=== PATIENT | female | born 1960 | race Caucasian/White ===

== ENCOUNTER 2017-02-07 10:52 | Inpatient (IN) | payer OTHER ==
[2017-02-07 11:37] VITALS: BMI 18.3
--- NOTE | 2017-02-07 16:39 | HP ---
COWS - Scale Resting Pulse: 2= [place] 101-120 Sweatin= Chills/Flushing Restless Observation: 3= Extraneous Movement Pupil Size: 2= Moderately Dilated Bone or Joint Aches: 4=Acute Joint/Muscle Pain Runny Nose/ Eye Tearin= Nasal Congestion GI Upset > 30mins: 1= Stomach Cramp Tremor Observation: 4= Gross Tremor/Twitching Yawning Observation: 1= 1-2x During Session Anxiety or Irritability: 2=Irritable/Anxious Goose Flesh Skin: 0=Smooth Skin COWS Score: 21 CIWA Score - CIWA Score Nausea/Vomitin Muscle Tremors: 5 Anxiety: 5 Agitation: 3 Paroxysmal Sweats: 1-Minimal Palms Moist Orientation: 0-Oriented Tacttile Disturbances: 3-Moderate Itch/Numb/Burn Auditory Disturbances: 0-None Visual Disturbances: 0-None Headache: 0-None Present CIWA-Ar Total Score: 20 Admission ROS S - HPI Chief Complaint: DETOX TX FOR ALCOHOL AND HYDROCODONE DEPENDENCE, TREMORS, ANXIETY. "THIS IS WHAT HAPPENS TO ME IF I DON'T DRINK". Allergies/Adverse Reactions: Allergies Allergy/AdvReac Type Severity Reaction Status Date / Time No Known Allergies Allergy Verified 02/07/17 14:08 History of Present Illness: 56 Y/O FEMALE WITH A HX OF ALCOHOL AND HYDROCODONE DEPENDENCE SEEKING DETOX TX. PT STATES WAS AT HER DOCTOR ON 02/04/17 AND HAD ABNORMAL BLOOD WORK RESULTS...HYPOKALEMIA," LIVER INFLAMMATION", GALLSTONES BY SONOGRAM. PT STATES WAS REFERRED TO DETOX AND ALSO "I WANTED TO COME ANYWAY". Exam Limitations: No Limitations, Intoxication - Ebola screening Have you traveled outside of the country in the last 21 days: No Have you had contact with anyone from an Ebola affected area: No Have you been sick,other than usual withdrawal symptoms: No Do you have a fever: No - Review of Systems Constitutional: Chills, Loss of Appetite, Night Sweats, Changes in sleep, Unintentional Wgt. Loss EENT: reports: Blurred Vision (WEARS GLASSES), Tearing, Nose Congestion Respiratory: reports: No Symptoms reported Cardiac: reports: Lightheadedness GI: reports: Constipated, Nausea, Poor Appetite, Poor Fluid Intake, Vomiting, Abdominal cramping : reports: No Symptoms Reported Musculoskeletal: reports: Back Pain (LUMBER STENOSIS. ARMS/BACK PAIN.), Joint Pain, Muscle Pain Integumentary: reports: Dryness, Rash (ON HAND) Neuro: reports: Numbness, Tingling, Tremors, Unsteady Gait, Dizziness Endocrine: reports: No Symptoms Reported Hematology: reports: Anemia Psychiatric: reports: Orientated x3, Anxious, Depressed Other Systems: Reviewed and Negative Patient History - Patient Medical History Hx Anemia: Yes Hx Asthma: No Hx Chronic Obstructive Pulmonary Disease (COPD): No Hx Cancer: No Hx Cardiac Disorders: No Hx Congestive Heart Failure: No Hx Hypertension: No Hx Hypercholesterolemia: No Hx Pacemaker: No HX Cerebrovascular Accident: No Hx Seizures: No Hx Dementia: No Hx Diabetes: No Hx Gastrointestinal Disorders: No Hx Liver Disease: No Hx Genitourinary Disorders: No Hx Sexually Transmitted Disorders: No Hx Renal Disease (ESRD): No Hx Thyroid Disease: No Hx Human Immunodeficiency Virus (HIV): No (NEGATIVE HX) Hx Hepatitis C: No Hx Depression: Yes Hx Suicide Attempt: Yes (tried to overdose in the ) Hx Bipolar Disorder: Yes (AND ANXIETY..NO MEDS) Hx Schizophrenia: No Other Medical History: GALLSTONES HX; HYPOKALEMIA HX - Patient Surgical History Past Surgical History: Yes Hx Neurologic Surgery: No Hx Cataract Extraction: No Hx Cardiac Surgery: No Hx Lung Surgery: No Hx Breast Surgery: No Hx Breast Biopsy: No Hx Abdominal Surgery: No Hx Appendectomy: No Hx Cholecystectomy: No Hx Genitourinary Surgery: No Hx Section: No Hx Orthopedic Surgery: No Other Surgical History: removal of bunion/reconstructive sx, right foot Anesthesia Reaction: No - PPD History Previous Implant?: Yes Documented Results: Negative w/o proof Implanted On Prior [facility] Admission?: Yes Date: 12/04/15 Results: 0 mm - Reproductive History Last Menstrual Period: 12/07/13 Patient : No - Smoking Cessation Smoking history: Current every day smoker Have you smoked in the past 12 months: Yes Aproximately how many cigarettes per day: 20 Cigars Per Day: 0 Hx Chewing Tobacco Use: No Initiated information on smoking cessation: Yes 'Breaking Loose' booklet given: 02/07/17 - Substances Abused Alcohol Route: Oral Frequency: Daily Amount used: 1 pint-1 qt of vodka Age of first use: 14 Date of Last Use: 02/07/17 hydrocodone Route: Oral Frequency: Daily Amount used: 4- 10mg pills and up Age of first use: 47 Date of Last Use: 02/07/17 Family Disease History - Family Disease History Family Disease History: Other: Father (alcohol DEPENDENT AND STOPPED ) Admission Physical Exam [facility] - Vital Signs Vital Signs: Vital Signs - 24 hr 02/07/17 11:35 Temperature 98.5 F Pulse Rate 102 H Respiratory 18 Rate Blood Pressure 106/68 - Physical General Appearance: Yes: Moderate Distress, Alcohol on Breath, Intoxicated, Tremorous, Irritable, Anxious HEENTM: Yes: EOMI, Normocephalic, KAYLEY, Pharynx Normal Respiratory: Yes: Chest Non-Tender, Lungs Clear, Normal Breath Sounds, No Respiratory Distress Breast: Yes: Breast Exam Deferred Cardiology: Yes: Regular Rhythm, Regular Rate, S1, S2 Abdominal: Yes: Normal Bowel Sounds, Non Tender, Soft Genitourinary: Yes: Other (N/C) Musculoskeletal: Yes: full range of Motion, Gait Steady Extremities: Yes: Normal Range of Motion, Non-Tender, Tremors Neurological: Yes: community services officer II-XII NML intact, Fully Oriented, Alert Integumentary: Yes: Dry, Warm Lymphatic: Yes: Within Normal Limits - Diagnostic (1) Alcohol dependence with uncomplicated withdrawal Current Visit: Yes Status: Acute (2) Low back pain Current Visit: Yes Status: Chronic (3) Lumbosacral spinal stenosis Current Visit: Yes Status: Chronic (4) Nicotine dependence Current Visit: Yes Status: Acute Qualifiers: Nicotine product type: cigarettes Substance use status: in withdrawal Qualified Code(s): F17.213 - Nicotine dependence, cigarettes, with withdrawal (5) Opioid dependence with withdrawal Current Visit: Yes Status: Acute (6) History of anemia Current Visit: Yes Status: Suspected Cleared for Admission [facility] - Detox or Rehab [facility] Level of Care: Medically Managed Detox Regimen/Protocol: Methadone/Librium [facility] Breath Alcohol Content Breath Alcohol Content: 0.167 Urine Pregancy Test - Result Urine Test Results: Negative- NO Line Present Urine Drug Screen - Results Drug Screen Negative: No Urine Drug Screen Results: OPI-Opiates, OXY-Oxycodone
[2017-02-07] MEDS ORDERED: IBUPROFEN 400 MG TABLET (FP) PO PRN (16:56)
[2017-02-07] MEDS ORDERED: LOPERAMIDE HCL 2 MG CAPSULE PO PRN (16:56)
[2017-02-07] MEDS ORDERED: MAG HYDROX/AL HYDROX/SIMETH 30 ML UNIT-DOSE CUP PO PRN (16:56)
[2017-02-07] MEDS ORDERED: P-EPHED 60MG/TRIPROLIDI 2.5MG TABLET PO PRN (16:56)
[2017-02-07] MEDS ORDERED: diphenhydrAMINE HCL 50 MG CAPSULE PO PRN (16:56)
[2017-02-07] MEDS ORDERED: hydrOXYzine PAMOATE 25 MG CAPSULE (FP) PO PRN (16:56)
[2017-02-07] MEDS ORDERED: MENTHOL/PHENOL 1 EACH UD MM PRN (16:56)
[2017-02-07] MEDS ORDERED: NICOTINE POLACRILEX 4 MG GUM BC PRN (16:56)
[2017-02-07] MEDS ORDERED: MAGNESIUM CITRATE 300 ML BOTTLE PO PRN (16:56)
[2017-02-07] MEDS ORDERED: chlordiazePOXIDE HCL 25 MG CAPSULE PO PRN (16:56)
[2017-02-07] MEDS ORDERED: guaiFENesin/D-METHORPHAN HB 10 ML UNIT-DOSE CUPS PO PRN (16:56)
[2017-02-07] MEDS ORDERED: ACETAMINOPHEN 325 MG TABLET (FP) PO PRN (16:56)
[2017-02-07] MEDS ORDERED: MAGNESIUM HYDROX 2400MG/30ML ORAL SUSPENSION 30 ML CUP PO PRN (16:56)
[2017-02-07] MEDS ORDERED: chlordiazePOXIDE HCL 25 MG CAPSULE PO ONE (17:30)
[2017-02-07] MEDS ORDERED: METHADONE HCL 10 MG TABLET (FOR DETOX USE ONLY) PO ONE ×2 (17:30→23:00)
[2017-02-07] MEDS: NICOTINE 21 MG/24 HOURS TOPICAL PATCH TD SCH (17:37)
[2017-02-07] MEDS ORDERED: THIAMINE HCL 100 MG TABLET (FP) PO SCH (22:00)
[2017-02-07] MEDS: chlordiazePOXIDE HCL 25 MG CAPSULE PO SCH (22:35)
[2017-02-08] MEDS: chlordiazePOXIDE HCL 25 MG CAPSULE PO SCH ×3 (06:17→18:28)
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
[2017-02-08 09:46] LABS: MCHC 33.9 g/dl (32.0-36.0); MEAN CELL VOLUME 123.9 fl (80-96); MEAN PLT VOLUME 9.6 fl (7.5-11.1); PLATELET COUNT 160 K/MM3 (134-434); RDW 14.9 % (11.6-15.6); WHITE BLOOD COUNT 8.1 K/mm3 (4.0-10.0)
[2017-02-08] MEDS ORDERED: METHADONE HCL 10 MG TABLET (FOR DETOX USE ONLY) PO SCH (10:00)
[2017-02-08] MEDS ORDERED: PRENATAL VITAMINS W/ FOLIC ACID TABLET (FP) PO SCH (10:00)
[2017-02-08] MEDS: NICOTINE 21 MG/24 HOURS TOPICAL PATCH TD SCH (10:06)
[2017-02-08 10:22] LABS: ALBUMIN 2.7 g/dl (3.4-5.0); ALK PHOS 700 U/L (45-117); ANION GAP 12 (8-16); CALCIUM 7.9 mg/dL (8.5-10.1); CO2 27 mmol/L (21-32); CREATININE 0.5 mg/dL (0.55-1.02); GLUCOSE,RANDOM 115 mg/dL (74-106); SGOT/AST 256 U/L (15-37); SGPT/ALT 42 U/L (12-78); TOT PROT 6.4 g/dl (6.4-8.2)
--- NOTE | 2017-02-08 11:11 | PN ---
[facility] CIWA - CIWA Score Nausea/Vomitin-No Nausea/No Vomiting Muscle Tremors: 4-Moderate,w/Arms Extend Anxiety: 3 Agitation: 4-Moderately Restless Paroxysmal Sweats: 3 Orientation: 0-Oriented Tacttile Disturbances: 0-None Auditory Disturbances: 0-None Visual Disturbances: 0-None Headache: 1-Very Mild CIWA-Ar Total Score: 15 BHS COWS - Scale Resting Pulse: 2= [place] 101-120 Sweatin=Flushed/Facial Moisture Restless Observation: 1= Difficult to Sit Still Pupil Size: 0= Normal to Room Light Bone or Joint Aches: 2= Severe Diffuse Aches Runny Nose/ Eye Tearin= Runny Nose/Eyes GI Upset > 30mins: 0= None Tremor Observation of Outstretched Hands: 2= Slight Tremor Visible Yawning Observation: 1= 1-2x During Session Anxiety or Irritability: 2=Irritable/Anxious Goose Flesh Skin: 3=Piloerection COWS Score: 17 S Progress Note (SOAP) Subjective: tremulous sweats agitation irritable interrupted sleep Objective: 02/08/17 11:13 Vital Signs Temperature 101.8 F H 02/08/17 10:43 Pulse Rate 108 H 02/08/17 10:43 Respiratory Rate 16 02/08/17 10:43 Blood Pressure 105/61 02/08/17 10:43 O2 Sat by Pulse Oximetry (%) Laboratory Tests 02/08/17 02/08/17 06:00 06:00 WBC 8.1 RBC 2.68 L D Hgb 11.3 Hct 33.2 MCV 123.9 H D MCHC 33.9 RDW 14.9 D Plt Count 160 D MPV 9.6 D Sodium 141 Potassium 3.7 Chloride 102 Carbon Dioxide 27 Anion Gap 12 BUN 6 L D Creatinine 0.5 L D Creat Clearance w eGFR > 60 Random Glucose 115 H Calcium 7.9 L Total Bilirubin 3.0 H D AST 256 H D ALT 42 D Alkaline Phosphatase 700 H D Total Protein 6.4 Albumin 2.7 L D labs pending awake/alert lying in bed temp 101.8; chest x-ray ordered Assessment: 02/08/17 11:18 withdrawal sx Plan: continue detox increase fluids chest x-ray pending repeat labs
[2017-02-08 11:57] LABS: ANISOCYTOSIS 1+; TARGET CELLS 3+
[2017-02-08 17:54] VITALS: BP 90/54; PULSE 120; TEMP 101.7
--- NOTE | 2017-02-08 20:18 | DS ---
[facility] Detox Discharge Summary Admission Date: 02/07/17 Discharge Date: 02/08/17 - History Present History: Alcohol Dependence, Opioid Dependence Additional Comments: RECEIVED NURSE INFORMED PATIENT INSISTS TO LEAVE THE UNIT REFUSES TO WAIT FACE TO FACE WITH PROVIDER CONSIDER FOLLOW UP AFTERCARE PER COUNSELOR ARRANGED REFUSES E PRESCRIPTION AGREES TO MAKE AN APPOINTMENT WITH PRIMARY CARE PROVIDER AND FACILITATE ER SERVICES IF NECESSARY Pertinent Past History: NICOTINE DEPENDENCE - Physical Exam Results Vital Signs: Vital Signs Temperature 101.7 F H 02/08/17 17:52 Pulse Rate 120 H 02/08/17 17:52 Respiratory Rate 18 02/08/17 17:52 Blood Pressure 90/54 02/08/17 17:52 O2 Sat by Pulse Oximetry (%) Pertinent Admission Physical Exam Findings: WITHDRAWAL SX Laboratory Last Values WBC 8.1 K/mm3 (4.0-10.0) 02/08/17 06:00 RBC 2.68 M/mm3 (3.60-5.2) L D 02/08/17 06:00 Hgb 11.3 GM/dL (10.7-15.3) 02/08/17 06:00 Hct 33.2 % (32.4-45.2) 02/08/17 06:00 MCV 123.9 fl (80-96) H D 02/08/17 06:00 MCHC 33.9 g/dl (32.0-36.0) 02/08/17 06:00 RDW 14.9 % (11.6-15.6) D 02/08/17 06:00 Plt Count 160 K/MM3 (134-434) D 02/08/17 06:00 MPV 9.6 fl (7.5-11.1) D 02/08/17 06:00 Anisocytosis 1+ 02/08/17 06:00 Macrocytosis 3+ 02/08/17 06:00 Target Cells 3+ 02/08/17 06:00 Morphology Comment Slide scanned 02/08/17 06:00 Sodium 141 mmol/L (136-145) 02/08/17 06:00 Potassium 3.7 mmol/L (3.5-5.1) 02/08/17 06:00 Chloride 102 mmol/L (98-107) 02/08/17 06:00 Carbon Dioxide 27 mmol/L (21-32) 02/08/17 06:00 Anion Gap 12 (8-16) 02/08/17 06:00 BUN 6 mg/dL (7-18) L D 02/08/17 06:00 Creatinine 0.5 mg/dL (0.55-1.02) L D 02/08/17 06:00 Creat Clearance w eGFR > 60 (>60) 02/08/17 06:00 Random Glucose 115 mg/dL (74-106) H 02/08/17 06:00 Calcium 7.9 mg/dL (8.5-10.1) L 02/08/17 06:00 Total Bilirubin 3.0 mg/dL (0.2-1.0) H D 02/08/17 06:00 AST 256 U/L (15-37) H D 02/08/17 06:00 ALT 42 U/L (12-78) D 02/08/17 06:00 Alkaline Phosphatase 700 U/L (45-117) H D 02/08/17 06:00 Total Protein 6.4 g/dl (6.4-8.2) 02/08/17 06:00 Albumin 2.7 g/dl (3.4-5.0) L D 02/08/17 06:00 RPR Titer Nonreactive (NONREACTIVE) 02/08/17 06:00 LAB NOTED - Treatment Hospital Course: Detox Protocol Followed, Responded well - Medication Discharge Medications: Ambulatory Orders Pregabalin [Lyrica] 150 mg PO HS 04/23/14 Hydrocodone/Acetaminophen [Lortab 10-325 mg Tablet] 1 each PO BID 11/23/14 - Diagnosis (1) Alcohol dependence with uncomplicated withdrawal Status: Acute (2) Nicotine dependence Status: Acute Qualifiers: Nicotine product type: cigarettes Substance use status: in withdrawal Qualified Code(s): F17.213 - Nicotine dependence, cigarettes, with withdrawal (3) Opioid dependence with withdrawal Status: Acute - AMA Did Patient Leave Against Medical Advice: Yes
[2017-02-08] MEDS ORDERED: chlordiazePOXIDE HCL 25 MG CAPSULE PO SCH (23:00)
--- NOTE | 2017-02-08 23:39 | EKG ---
Test Reason : Blood Pressure : / mmHG Vent. Rate : 080 BPM Atrial Rate : 080 BPM P-R Int : 144 ms QRS Dur : 064 ms QT Int : 384 ms P-R-T Axes : 074 064 057 degrees QTc Int : 442 ms NORMAL SINUS RHYTHM ANTERIOR INFARCT , AGE UNDETERMINED ABNORMAL ECG NO PREVIOUS ECGS AVAILABLE Confirmed by LUIS STEELE, ERA ([id number]) on 02/08/2017 11:39:13 PM Referred By: Jose Clemens Confirmed By:ERA SMITH MD
[2017-02-09] MEDS ORDERED: METHADONE HCL 5 MG TABLET (FOR DETOX USE ONLY) PO SCH (10:00)
[2017-02-09] MEDS ORDERED: chlordiazePOXIDE 5 MG CAPSULE PO SCH (23:00)
[2017-02-10] MEDS ORDERED: chlordiazePOXIDE HCL 10 MG CAPSULE PO SCH (23:00)
[2017-02-11] MEDS ORDERED: METHADONE HCL 10 MG TABLET (FOR DETOX USE ONLY) PO SCH (10:00)
[2017-02-12] MEDS ORDERED: METHADONE HCL 5 MG TABLET (FOR DETOX USE ONLY) PO SCH (06:00)
== END 2017-02-08 18:27 | disposition left against medical advice (07) | DRG 894 ==
LOC: YASAS 10:52 → Y6N 14:56
PROVIDERS: ADMIT Internal Medicine Addiction Medicine; ATTEND Internal Medicine Addiction Medicine
PROC: HZ2ZZZZ Detoxification Services for Substance Abuse Treatment (ICD-10-PCS; principal; 2017-02-08)
DX: F11.23 Opioid dependence with withdrawal (principal); F19.280 Other psychoactive substance dependence with psychoactive substance-induced anxiety disorder; F10.230 Alcohol dependence with withdrawal, uncomplicated; F17.213 Nicotine dependence, cigarettes, with withdrawal; M48.07 Spinal stenosis, lumbosacral region; Z86.2 Personal history of diseases of the blood and blood-forming organs and certain disorders involving the immune mechanism
CPT/HCPCS: 36415; 71010-TC; 80053; 85027; 86593; 93005; 93010

== ENCOUNTER 2018-05-13 22:26 | Inpatient (IN) | payer OTHER ==
--- NOTE | 2018-05-13 22:42 | PDOC ---
History of Present Illness - General Chief Complaint: Pain, Acute Stated Complaint: ABDOMINAL PAIN Time Seen by Provider: 05/13/18 22:42 - History of Present Illness Initial Comments: 05/13/18 22:51 Ms. Leroy is a 57 yo female w/ pmh of alcohol abuse who presents [facility]. Ms. Leroy reports she has been drinking a pint of hard liquor per day for years and decided it was time to go into detox. She reports her last drink was at 2am this morning. [facility] sent her to ER for evaluation of 2 week history of left sided abdominal pain. The patient denies chest pain, shortness of breath, headache and dizziness. Denies fever, chills, nausea, vomit, diarrhea and constipation. Denies dysuria, frequency, urgency and hematuria. Allergies: NKDA Past History - Past Medical History Allergies/Adverse Reactions: Allergies Allergy/AdvReac Type Severity Reaction Status Date / Time No Known Allergies Allergy Verified 05/13/18 22:41 Home Medications: Ambulatory Orders Pregabalin [Lyrica] 150 mg PO HS 04/23/14 Hydrocodone/Acetaminophen [Lortab 10-325 mg Tablet] 1 each PO BID 11/23/14 Anemia: Yes Asthma: No Cancer: No Cardiac Disorders: No CVA: No COPD: No CHF: No Dementia: No Diabetes: No GI Disorders: No Disorders: No HTN: No Hypercholesterolemia: No Kidney Stones: No Liver Disease: No Seizures: No Thyroid Disease: No - Surgical History Abdominal Surgery: No Appendectomy: No Cardiac Surgery: No Cholecystectomy: No Lung Surgery: No Neurologic Surgery: No Orthopedic Surgery: No - Reproductive History PID: No - Immunization History Td Vaccination: No - Suicide/Smoking/Psychosocial Hx Smoking Status: Yes Smoking History: Current every day smoker Have you smoked in the past 12 months: Yes Number of Cigarettes Smoked Daily: 20 Cigars Per Day: 0 'Breaking Loose' booklet given: 02/07/17 Hx Alcohol Use: Yes (VODKA) Drug/Substance Use Hx: No Substance Use Type: Alcohol Hx Substance Use Treatment: Yes Review of Systems - Review of Systems Comments:: 05/13/18 23:00 GENERAL/CONSTITUTIONAL: No fever or chills. No weakness. HEAD, EYES, EARS, NOSE AND THROAT: No change in vision. No ear pain or discharge. No sore throat. CARDIOVASCULAR: No chest pain or shortness of breath RESPIRATORY: No cough, wheezing, or hemoptysis. GASTROINTESTINAL: +1-2 weeks of left sided abdominal pain. No nausea, vomiting, diarrhea or constipation. GENITOURINARY: No dysuria, frequency, or change in urination. MUSCULOSKELETAL: No joint or muscle swelling or pain. No neck or back pain. SKIN: No rash NEUROLOGIC: No headache, vertigo, loss of consciousness, or change in strength/ sensation. ENDOCRINE: No increased thirst. No abnormal weight change HEMATOLOGIC/LYMPHATIC: No anemia, easy bleeding, or history of blood clots. ALLERGIC/IMMUNOLOGIC: No hives or skin allergy. *Physical Exam - Physical Exam Comments: 05/13/18 23:23 GENERAL: Awake, alert, and fully oriented, in no acute distress HEAD: No signs of trauma, normocephalic, atraumatic EYES: PERRLA, EOMI, sclera anicteric, conjunctiva clear ENT: Auricles normal inspection, hearing grossly normal, nares patent, oropharynx clear without exudates. Moist mucosa NECK: Normal ROM, supple, no lymphadenopathy, JVD, or masses LUNGS: No distress, speaks full sentences, clear to auscultation bilaterally HEART: Regular rate and rhythm, normal S1 and S2, no murmurs, rubs or gallops, peripheral pulses normal and equal bilaterally. ABDOMEN: +Generalized TTP in all quadrants. Soft, normoactive bowel sounds. No guarding, no rebound. No masses EXTREMITIES: Normal inspection, Normal range of motion, no edema. No clubbing or cyanosis. NEUROLOGICAL: Cranial nerves II through XII grossly intact. Normal speech, normal gait, no focal sensorimotor deficits SKIN: Warm, Dry, normal turgor, no rashes or lesions noted. ED Treatment Course - LABORATORY CBC & Chemistry Diagram: 05/14/18 05:30 05/14/18 05:30 Medical Decision Making - Medical Decision Making 05/13/18 23:24 Ms. Leroy is a 57 yo female w/ pmh of alcohol abuse who presents for evaluation of 2 week history of left sided abdominal pain. Patient denies all other symptoms however is generally TTP in all abdominal quadrants. Patient also noted to be tremulous on exam. Librium ordered for prophylaxis and labs / CT Abd/pelvis ordered for further evaluation. 05/14/18 00:01 Patient signed out to Dr. Pena for further evaluation. *DC/Admit/Observation/Transfer Diagnosis at time of Disposition: Pancreatitis Qualifiers: Chronicity: acute Pancreatitis type: unspecified pancreatitis type Acute pancreatitis complication: unspecified Qualified Code(s): K85.90 - Acute pancreatitis without necrosis or infection, unspecified - Discharge Dispostion Condition at time of disposition: Guarded Decision to Admit order: Yes - Referrals - Patient Instructions - Post Discharge Activity
--- NOTE | 2018-05-13 23:12 | PDOC ---
Attending Attestation - Resident Resident Name: AndrynikTj corea - ED Attending Attestation I have performed the following: I have examined & evaluated the patient, The case was reviewed & discussed with the resident, I agree w/resident's findings & plan, Exceptions are as noted - HPI HPI: 05/13/18 23:11 Ms Gleason is a 57 yo F who presents to the ER with a complaint of abdominal pain She has a h/o anemia, back pain and depression She has had abdominal pain for at least 3 weeks No nausea or vomiting No diarrhea No fevers or chills Pt has taken no medications for he pain She came to the [facility] detox program today when she was noted to be hunched over in pain she was sent to the Er for evaluation No prior episodes like this Pain is 7/10, predominantly in the LLQ - Physicial Exam PE: 05/13/18 23:14 GENERAL: The patient is in no acute distress. HEAD: Normal EYES: PERRLA, EOMI, sclera anicteric, conjunctiva clear. ENT: Ears normal, nares patent, oropharynx clear without exudates. Dry mucous membranes. NECK: Normal range of motion, supple LUNGS: Breath sounds equal, clear to auscultation bilaterally. No wheezes, and no crackles. HEART:Regular rate and rhythm, normal S1 and S2 without murmur, rub or gallop. ABDOMEN: Soft, distended, tender to palpation through out the abdomen, no involuntary guarding, no rebound EXTREMITIES: Normal range of motion, no edema. NEUROLOGICAL: Cranial nerves II through XII grossly intact. Normal speech. No focal neurological deficits. MUSCULOSKELETAL: Back non-tender to palpation SKIN: Warm, Dry, normal turgor, no rashes or lesions noted. - Medical Decision Making 05/13/18 23:15 57 yo F who presents to the ER with a complaint of abdominal pain which has been present for the past 3 weeks+ DD: diverticulitis, colitis, ovarian pathology, biliary pathology Will do: Labs CT UA Urine culture Re assess 05/14/18 00:37 Laboratory Tests 02/08/17 05/13/18 05/14/18 06:00 23:50 00:05 WBC 8.1 8.3 Hgb 11.3 10.6 L Hct 33.2 31.2 L Plt Count 160 D 156 Urine Blood Negative Urine Nitrite Negative Ur Leukocyte Esterase Negative 05/14/18 01:17 Laboratory Tests 05/13/18 23:50 Sodium 143 Potassium 3.4 L Chloride 107 Carbon Dioxide 27 BUN 4 L Creatinine 0.8 Random Glucose 90 Calcium 8.2 L Total Bilirubin 1.5 H AST 102 H Alkaline Phosphatase 684 H Total Protein 6.3 L Albumin 2.4 L Lipase 507 H Labs demonstrate pancreatitis Pending CT <Sita Cuevas - Last Filed: 05/14/18 01:17> - Medical Decision Making Patient Name: ADRIANA GLEASON THIS IS A PRELIMINARY REPORT FROM [facility] PRIMARY DATE OF SERVICE: 2018-05-14 01:20:11 IMAGES: [id number] EXAM: CT ABDOMEN \T\ PELVIS CT WITH CONTR HISTORY: Generalized abdominal pain COMPARISON: None. FINDINGS: Abdomen Liver: Normal Spleen: Normal Pancreas: There is some haziness in the retroperitoneum surrounding the pancreas Gallbladder: Normal Stomach: Normal Small bowel: There is mild thickening of the left upper quadrant small bowel and duodenum Large bowel: Normal Appendix: Normal Adrenals:Normal Kidneys: Normal Vascular: Normal Lymphatic: Normal Peritoneal: No free peritoneal air or fluid Pelvis: Uterus: normal Rectum: Normal Bladder: Bladder is mildly thickened but incompletely distended The inferior thorax: Normal General: Skeletal: Normal Abdominal wall: Normal IMPRESSION: Haziness in the retroperitoneum surrounding the pancreas possibly related to pancreatitis. Correlation with pancreatic enzymes is recommended. Thickening of the duodenum and proximal small bowel may be related to adjacent pancreatic inflammation, or focal enteritis Individualized dose optimization techniques were used for this CT. THIS DOCUMENT HAS BEEN ELECTRONICALLY SIGNED Pt will be admitted for GI consult and further workup. <Yisel Pitt - Last Filed: 05/15/18 04:33>
[2018-05-13] MEDS ORDERED: SODIUM CHLORIDE 1,000 ML IV STA ×2 (23:16→23:17)
[2018-05-13] MEDS ORDERED: chlordiazePOXIDE HCL 25 MG CAPSULE PO ONE (23:17)
[2018-05-13] MEDS ORDERED: chlordiazePOXIDE HCL 25 MG CAPSULE ONE (23:39)
[2018-05-13 23:54] LABS: EOS % 1.1 % (0-4.5)
[2018-05-14 00:01] LABS: BASO % 1.5 % (0-2.0); HEMATOCRIT 31.2 % (32.4-45.2); HEMOGLOBIN 10.6 GM/dL (10.7-15.3); LYMPH % 35.9 % (8-40); MCH 34.6 pg (25.7-33.7); MEAN CELL VOLUME 101.7 fl (80-96); MEAN PLT VOLUME 8.4 fl (7.5-11.1); MONO % 9.9 % (3.8-10.2); NEUT % 51.6 % (42.8-82.8); PLATELET COUNT 156 K/MM3 (134-434); RBC 3.07 M/mm3 (3.60-5.2); RDW 16.8 % (11.6-15.6); WHITE BLOOD COUNT 8.3 K/mm3 (4.0-10.0)
--- NOTE | 2018-05-14 00:23 | PDOC ---
History of Present Illness - General Chief Complaint: Pain, Acute Stated Complaint: ABDOMINAL PAIN Time Seen by Provider: 05/13/18 22:42 History Source: Patient Exam Limitations: No Limitations - History of Present Illness Initial Comments: 05/14/18 00:31 57 year old female with past medical history of ETOH abuse who presents today from [facility] for detox complaining of abdominal pain x5 weeks that is getting progressively worse. Pt states that her abdominal pain is located on the left side, non-radiating. Pt states her abdominal pain is associated with increased urinary frequency, but she denies dysuria, hematuria, fever, chills, nausea, vomiting. She states her last drink was at 0200 05/13/17. She states that she usually drinks a pint of vodka a day. Past History - Past Medical History Allergies/Adverse Reactions: Allergies Allergy/AdvReac Type Severity Reaction Status Date / Time No Known Allergies Allergy Verified 05/13/18 22:41 Home Medications: Ambulatory Orders Pregabalin [Lyrica] 150 mg PO HS 04/23/14 Hydrocodone/Acetaminophen [Lortab 10-325 mg Tablet] 1 each PO BID 11/23/14 Anemia: Yes Asthma: No Cancer: No Cardiac Disorders: No CVA: No COPD: No CHF: No Dementia: No Diabetes: No GI Disorders: No Disorders: No HTN: No Hypercholesterolemia: No Kidney Stones: No Liver Disease: No Seizures: No Thyroid Disease: No - Surgical History Abdominal Surgery: No Appendectomy: No Cardiac Surgery: No Cholecystectomy: No Lung Surgery: No Neurologic Surgery: No Orthopedic Surgery: No - Reproductive History PID: No - Immunization History Td Vaccination: No - Suicide/Smoking/Psychosocial Hx Smoking Status: Yes Smoking History: Current every day smoker Have you smoked in the past 12 months: Yes Number of Cigarettes Smoked Daily: 20 Cigars Per Day: 0 Information on smoking cessation initiated: No 'Breaking Loose' booklet given: 02/07/17 Hx Alcohol Use: Yes (VODKA) Drug/Substance Use Hx: No Substance Use Type: Alcohol Hx Substance Use Treatment: Yes Review of Systems - Review of Systems Comments:: 05/14/18 00:34 General: denies for fever, chills, night sweats, generalized weakness. HEENT: denies for sore throat, rhinorrhea, ear pain. Heart: denies for chest pain, palpitations, syncope, lower extremity swelling, lightheadedness. Respiratory: denies shortness of breath, cough, sputum production, hematemesis. Abdomen: admits to abdominal pain, yellow stool. denies nausea, vomiting, diarrhea, constipation, blood in stool. : admits to increased urinary frequency. denies for dysuria, hematuria. Musculoskeletal: denies for joint pain, muscle pain, joint swelling. Neurological: denies for headache, dizziness, numbness, tingling, Skin: denies for rash, laceration, abrasion. 05/14/18 00:38 *Physical Exam - Vital Signs Last Vital Signs Temp Pulse Resp BP Pulse Ox 98.4 F 96 H 20 109/68 100 05/13/18 22:41 05/13/18 22:41 05/13/18 22:41 05/13/18 22:41 05/13/18 22:41 05/14/18 00:41 Patient is afebrile. - Physical Exam Comments: 05/14/18 00:35 General: awake, alert and oriented X3, no apparent distress HEENT: head is normocephalic, atraumatic. EOMI. PERRLA. Neck: supple without lymphadenopathy Heart: regular rhythm. no murmurs, rubs or gallops. Lungs: clear to auscultation bilaterally. no crackles, rhonchi or wheezing. no stridor. Abdomen: soft. diffusely tender abdomen. positive for guarding. garcia's sign positive. normal bowel sounds. no rebound, masses. Extremities: Peripheral pulses intact. No leg edema. Neurological: Alert. Oriented x3. CN 2-12 grossly intact. Moves all four extremities. 05/14/18 00:51 Heart Score/ECG Review - ECG Impressions Comment:: 05/14/18 01:53 EKG performed at 1:55 - rate 90, normal rhythm, normal axis, QTc 522, no acute ST changes. ED Treatment Course - LABORATORY CBC & Chemistry Diagram: 05/13/18 23:50 05/13/18 23:50 - ADDITIONAL ORDERS Additional order review: 05/13/18 23:50 RBC 3.07 L MCV 101.7 H MCHC 34.0 RDW 16.8 H MPV 8.4 D Neutrophils % 51.6 Lymphocytes % 35.9 Monocytes % 9.9 Eosinophils % 1.1 Basophils % 1.5 - Medications Given in the ED: ED Medications Discontinued Medications Generic Name Dose Route Start Last Admin Trade Name Luz Marina PRN Reason Stop Dose Admin Chlordiazepoxide HCl 50 mg 05/13/18 23:17 05/14/18 00:02 Librium - PO 05/13/18 23:18 50 mg ONCE ONE Administration Sodium Chloride 1,000 mls @ 1,000 mls/hr 05/13/18 23:16 05/14/18 00:02 Normal Saline - IV 05/14/18 00:15 1,000 mls/hr ASDIR STA Administration Sodium Chloride 1,000 mls @ 1,000 mls/hr 05/13/18 23:17 05/14/18 00:02 Normal Saline - IV 05/14/18 00:16 Not Given ASDIR STA Medical Decision Making - Medical Decision Making 05/14/18 00:36 Patient signed out to me by Dr. Lanza. He states that her laboratory work has been sent to the lab and we are awaiting an abdomen/pelvis CT to be performed. He states that he gave her NS 1000 mL and Librium 50 mg. I saw and assessed the patient. 05/14/18 00:40 UA results reveal no urinary source of infection. CBC results reveal no elevation of WBC. 05/14/18 01:20 Lactate 3.1, will re-draw second lactate 3 hours after the first was drawn. Lipase 507. Pt is receiving IV fluids. 05/14/18 01:44 Pt is placed on NPO diet. 05/14/18 02:42 CT resulted - pt has pancreatitis. 05/14/18 04:03 [facility] sent at 02:42 am. Awaiting response. 05/14/18 04:06 Response from [facility] - she is admitted to Dr. Cristobal. I did not receive a phone call from the admitting team. I saw Dr. Cristobal in the ED while he was seeing the patient. *DC/Admit/Observation/Transfer Diagnosis at time of Disposition: Pancreatitis - Discharge Dispostion Condition at time of disposition: Guarded Decision to Admit order: Yes - Referrals - Patient Instructions - Post Discharge Activity
[2018-05-14 00:29] LABS: URINE APPEARANCE SLCLOUDY; URINE BILIRUBIN NEGATIVE (<2.0 mg/dL); URINE COLOR AMBER; URINE GLUCOSE (UA) NEGATIVE (NEGATIVE); URINE KETONE NEGATIVE (NEGATIVE); URINE LEUK ESTERASE NEGATIVE (NEGATIVE); URINE NITRITE NEGATIVE (NEGATIVE); URINE PROTEIN NEGATIVE (NEGATIVE)
[2018-05-14 00:48] LABS: ALBUMIN 2.4 g/dl (3.4-5.0); ANION GAP 9 (8-16); BILIRUBIN,TOTAL 1.5 mg/dL (0.2-1.0); BLOOD UREA NITROGEN 4 mg/dL (7-18); CALCIUM 8.2 mg/dL (8.5-10.1); CHLORIDE 107 mmol/L (98-107); CO2 27 mmol/L (21-32); CREATININE 0.8 mg/dL (0.55-1.02); GLUCOSE,RANDOM 90 mg/dL (74-106); POTASSIUM 3.4 mmol/L (3.5-5.1); SGOT/AST 102 U/L (15-37); SGPT/ALT 31 U/L (12-78); SODIUM 143 mmol/L (136-145); TOT PROT 6.3 g/dl (6.4-8.2)
[2018-05-14 00:49] LABS: ALK PHOS 684 U/L (45-117)
[2018-05-14 00:57] LABS: LIPASE 507 U/L (73-393)
[2018-05-14] MEDS ORDERED: LACTATED RINGERS SOLUTION 1,000 ML/1,000 ML INFUS.BAG IV SCH (02:00)
[2018-05-14] MEDS ORDERED: ACETAMINOPHEN 1000 MG/100 ML VIAL (NON FORMULARY) IVPB ONE (02:43)
[2018-05-14] MEDS ORDERED: FOLIC ACID INJECTION - 1 MG, THIAMINE HCL 100 MG, MULTIVIT INJECTION ADULT 10 ML in SOD... IVPB ONE (02:43)
--- NOTE | 2018-05-14 03:20 | PN ---
Teaching Attending Note Name of Resident: Ryley Drake ATTENDING PHYSICIAN STATEMENT I saw and evaluated the patient. I reviewed the resident's note and discussed the case with the resident. I agree with the resident's findings and plan as documented. SUBJECTIVE: Patient is 57 year old woman with history of ETOH abuse who presents today from [facility] (detox for alcohol and hydrocodone dependence) complaining of abdominal pain for 5 weeks that is getting progressively worse. Her pain is located on the left side, mostly LUQ and non-radiating. Pain is associated with increased urinary frequency, but she denies dysuria, hematuria, fever, chills, nausea, vomiting. She states her last drink was at 2 am this morning and smokes a pack of cigarettes daily. She states that she usually drinks a pint of vodka a day and has never been diagnosed with pancreatitis. She got one dose of librium in the ER. She says she is on disability due to "spinal stenosis". OBJECTIVE: Alert, calm and in no acute distress. Cachectic. Vital Signs Period Temp Pulse Resp BP Sys/Doll Pulse Ox Last 24 Hr 98.4 F 60-96 18-20 96-109/53-68 97-100 HEENT: No Jaundice, eye redness or discharge, PERRLA, EOMI. Normocephalic, atraumatic. External ears are normal and hearing is grossly intact. No nasal discharge. Neck: Supple, nontender. No palpable adenopathy or thyromegaly. No JVD Chest: Good effort. Clear to auscultation and percussion. Heart: Regular. No S3, rub or murmur Abdomen: Not distended, soft, tender LUQ and LLQ; no HSM. No rebound or guarding. Normoactive bowel sounds. Ext: Peripheral pulses intact. No leg edema. Skin: Warm and dry. No petechiae, rash or ecchymosis. Neuro: Alert. Oriented x3. No tremors or asterexis; CN 2-12 grossly intact. Sensation grossly intact in all four extremities and DTR are symmetric. Current Medications Generic Name Dose Route Start Last Admin Trade Name Freq PRN Reason Stop Dose Admin Lactated Ringer's 1,000 ml in 1,000 mls @ 100 mls/hr 05/14/18 02:00 Lactated Ringers Solution IV ASDIR SYED Folic Acid 1 mg/ Thiamine HCl 1,000 mls @ 125 mls/hr 05/14/18 02:43 100 mg/ Multivitamins/Minerals IVPB 05/14/18 10:42 10 ml/ Sodium Chloride ONCE ONE Home Medications Medication Instructions Recorded Pregabalin [Lyrica] 150 mg PO HS 04/23/14 Hydrocodone/Acetaminophen [Lortab 1 each PO BID 11/23/14 10-325 mg Tablet] Abnormal Lab Results 05/13/18 05/13/18 05/13/18 23:50 23:50 23:50 RBC 3.07 L Hgb 10.6 L Hct 31.2 L MCV 101.7 H MCH 34.6 H D RDW 16.8 H Potassium 3.4 L BUN 4 L Lactic Acid 3.1 H* Calcium 8.2 L Total Bilirubin 1.5 H AST 102 H Alkaline Phosphatase 684 H Total Protein 6.3 L Albumin 2.4 L Lipase 507 H Urine Urobilinogen 05/14/18 00:05 RBC Hgb Hct MCV MCH RDW Potassium BUN Lactic Acid Calcium Total Bilirubin AST Alkaline Phosphatase Total Protein Albumin Lipase Urine Urobilinogen 2.0 H ASSESSMENT AND PLAN: 1. Alcohol abuse with Possible Pancreatitis - Prelimnary reading of abdominal CT scan describes a "haziness in the retroperitoneum" but the pancreas is not described. Clinical presentation is consistent with pancreatitis. She has gotten a banana bag and is now getting IV NS due to elevated lactic acid level - there is no evidence of sepsis. Continue treatment with thiamine and folic acid. She has multiple sequelae of alcohol abuse including hypokalemia, macrocytosis, elevated LFTs, and low albumin. We will trend LFTs and depending on the official report of CT abdomen, may get upper abdominal sonogram for clarification, trend lactic acid level and ensure adequate nutrition. Get urinalysis and check Mg and phosphate levels. Will give IV KCL 20 meq, place on [facility] librium alcohol withdrawal protocol and implement FALL PRECUATIONS. Provide counseling to help her quit drinking and return to alcohol Detox at [facility] once stable. 2. Hypoalbuminemia - Possibly due to combined effects of malnutrition and inflammation associated with comorbid chronic conditions. Check for proteinuria. Will ensure adequate dietary protein intake and also consult caseworker protective services. 3. Tobacco Use We will provide patient all the necessary assistance to facilitate smoking cessation and prescribe Nicotine patch. 4. Anemia - Do basic anemia work up including serial stool guaiacs, reticulocyte count and iron studies. Check B12 and folate levels. 5. DVT prophylaxis - Heparin 5000u sq tid. 6. Advance directives - Full code
--- NOTE | 2018-05-14 03:27 | HP ---
Admitting History and Physical - Primary Care Physician PCP: NONE - Admission Chief Complaint: abd pain History of Present Illness: 57 yo F h/o alcohol dependence presented to the ED with abd pain for months. Patient states that she had previously underwent alcohol detox in order to raise her children. But she started drinking 1 pint of vodka again a few months ago. Her last drink was this morning 2am. She was at [facility] wanting detox but got sent to [facility] ED for abd pain. The pain is diffuse, 7/10, intermittent , pressure and stabbing like, non-radiating, a/w bloating, better with drinking , no aggravating factor. Denies n/v, fever, chills, sob, chest pain, urinary or bowel sx. History Source: Patient Limitations to Obtaining History: No Limitations - Past Medical History ...LMP: 12/07/13 - Past Surgical History Past Surgical History: Yes: None - Smoking History Smoking history: Current every day smoker Have you smoked in the past 12 months: Yes Aproximately how many cigarettes per day: 20 - Alcohol/Substance Use Hx Alcohol Use: Yes (VODKA) Home Medications - Allergies Allergies/Adverse Reactions: Allergies Allergy/AdvReac Type Severity Reaction Status Date / Time No Known Allergies Allergy Verified 05/13/18 22:41 - Home Medications Home Medications: Ambulatory Orders Pregabalin [Lyrica] 150 mg PO HS 04/23/14 Hydrocodone/Acetaminophen [Lortab 10-325 mg Tablet] 1 each PO BID 11/23/14 Family Disease History - Family Disease History Family Disease History: Other: Father (alcohol DEPENDENT AND STOPPED ) Review of Systems - Review of Systems Constitutional: reports: No Symptoms Eyes: reports: No Symptoms HENT: reports: No Symptoms Cardiovascular: reports: No Symptoms Respiratory: reports: No Symptoms Gastrointestinal: reports: Abdominal Pain, Bloating Genitourinary: reports: No Symptoms Musculoskeletal: reports: No Symptoms Integumentary: reports: No Symptoms Neurological: reports: No Symptoms Endocrine: reports: No Symptoms Hematology/Lymphatic: reports: No Symptoms Psychiatric: reports: No Symptoms Physical Examination Vital Signs: Vital Signs Temperature 98.4 F 05/13/18 22:41 Pulse Rate 80 05/14/18 02:42 Respiratory Rate 18 05/14/18 02:42 Blood Pressure 107/68 05/14/18 02:42 O2 Sat by Pulse Oximetry (%) 97 05/14/18 02:42 Constitutional: Yes: No Distress, Calm Eyes: Yes: Sclera Icterus Cardiovascular: Yes: Tachycardia, S1, S2. No: Murmur Respiratory: Yes: CTA Bilaterally Gastrointestinal: Yes: Normal Bowel Sounds, Distention, Tenderness Extremities: Yes: WNL Edema: No Peripheral Pulses WNL: Yes Neurological: Yes: Alert, Oriented. No: Tremors Labs: CBC, BMP 05/13/18 23:50 05/13/18 23:50 Imaging - Results Cat Scan: Report Reviewed Assessment/Plan 57 yo F admitted for abd pain. Abd pain - likely 2/2 pancreatitis - NPO - Aggressive IVF resuscitation - GI consult - observe off abx Transaminitis - AST > ALT - Likely 2/2 alcohol - Cont. to trend LFT Elevated lactic acid - 2/2 alcohol metabolism - will stop trending Macrocytic anemia - B12 and folate level - likely from alcohol use - iron studies Alcohol dependence - CIWA = 0 - monitor sign of withdrawal FEN - IVF - Replete K+ - NPO DVT ppx - heparin tid Visit type - Emergency Visit Emergency Visit: Yes ED Registration Date: 05/14/18 Care time: The patient presented to the Emergency Department on the above date and was hospitalized for further evaluation of their emergent condition. - New Patient This patient is new to me today: Yes Date on this admission: 05/14/18 - Critical Care Critical Care patient: No Hospitalist Screening - Colonoscopy Questionnaire Colonoscopy Questionnaire: Colonoscopy Questionnaire - Patient: 50 - 75 years old and never had a screening colonoscopy: Unknown History of colon or rectal polyps, or CA: Unknown History of IBD, Crohn's disease or UC: Unknown History of abdominal radiation therapy as a child: Unknown - Relative: 1 with colon or rectal CA, or polyps at age 60 or younger: Unknown Colon or rectal CA diagnosed at age 45 or younger: Unknown Multiple relatives with colon or rectal CA: Unknown - Outcome: Screening Result: Negative Screen
[2018-05-14] MEDS ORDERED: morphine SULFATE 4 MG/ML VIAL IVPUSH PRN (03:40)
[2018-05-14] MEDS ORDERED: LACTATED RINGERS SOLUTION 1,000 ML IV STA (03:40)
[2018-05-14] MEDS: LACTATED RINGERS SOLUTION 1,000 ML/1,000 ML INFUS.BAG IV SCH (03:59)
[2018-05-14] MEDS ORDERED: KCL 10 MEQ IVPB 10 MEQ/100 ML INFUS.BAG IVPB SCH (04:00)
[2018-05-14] MEDS ORDERED: KCL 10 MEQ IVPB 10 MEQ/100 ML INFUS.BAG IVPB ONE ×2 (04:18→05:29)
[2018-05-14] MEDS ORDERED: HEPARIN NA (PORCINE) 5,000 UNITS/ML 1ML VIAL ONE (04:18)
[2018-05-14] MEDS: HEPARIN NA (PORCINE) 5,000 UNITS/ML 1ML VIAL SQ SCH ×4 (05:59→21:48)
[2018-05-14 06:59] LABS: HEMATOCRIT 29.3 % (32.4-45.2); HEMOGLOBIN 9.9 GM/dL (10.7-15.3); MCHC 33.8 g/dl (32.0-36.0); MEAN CELL VOLUME 103.8 fl (80-96); MEAN PLT VOLUME 9.1 fl (7.5-11.1); PLATELET COUNT 115 K/MM3 (134-434); RBC 2.83 M/mm3 (3.60-5.2); RDW 17.2 % (11.6-15.6); WHITE BLOOD COUNT 5.7 K/mm3 (4.0-10.0)
[2018-05-14 07:22] LABS: INR 1.27 (0.82-1.09); PROTHROMBIN TIME (PATIENT) 14.4 SEC (9.7-13.0)
[2018-05-14 07:49] LABS: ALBUMIN 2.1 g/dl (3.4-5.0); ANION GAP 9 (8-16); BILIRUBIN,DIRECT 1.3 mg/dL (0.0-0.2); BILIRUBIN,TOTAL 1.5 mg/dL (0.2-1.0); BLOOD UREA NITROGEN 3 mg/dL (7-18); CALCIUM 7.3 mg/dL (8.5-10.1); CHLORIDE 110 mmol/L (98-107); CO2 24 mmol/L (21-32); CREATININE 0.7 mg/dL (0.55-1.02); GLUCOSE,RANDOM 72 mg/dL (74-106); MAGNESIUM 1.5 mg/dL (1.8-2.4); PHOSPHOROUS 2.9 mg/dL (2.5-4.9); POTASSIUM 3.8 mmol/L (3.5-5.1); SGOT/AST 80 U/L (15-37); SGPT/ALT 24 U/L (12-78); SODIUM 143 mmol/L (136-145); TOT PROT 5.4 g/dl (6.4-8.2)
[2018-05-14 07:51] VITALS: BMI 17.4
[2018-05-14 08:24] LABS: ALK PHOS 606 U/L (45-117)
[2018-05-14] MEDS ORDERED: MAGNESIUM SULF 50% (8.12 MEQ/2 ML-1 GM VIAL) IVPB ONE (10:00)
--- NOTE | 2018-05-14 10:08 | EKG ---
Test Reason : Blood Pressure : / mmHG Vent. Rate : 093 BPM Atrial Rate : 093 BPM P-R Int : 140 ms QRS Dur : 074 ms QT Int : 420 ms P-R-T Axes : 066 062 061 degrees QTc Int : 522 ms NORMAL SINUS RHYTHM LOW VOLTAGE QRS PROLONGED QT ABNORMAL ECG WHEN COMPARED WITH ECG OF 07-FEB-2017 16:28, CRITERIA FOR ANTERIOR INFARCT ARE NO LONGER PRESENT QT HAS LENGTHENED Confirmed by JULIENNE STEELE, JOSE ANTONIO ([id number]) on 05/14/2018 10:08:06 AM Referred By: Confirmed By:JOSE ANTONIO ROBINS MD
[2018-05-14] MEDS: DEXTROSE 5%-NORMAL SALINE 1,000 ML IV SCH (10:38)
[2018-05-14] MEDS ORDERED: MORPHINE SULFATE 2 MG/ML VIAL IVPUSH PRN (13:30)
--- NOTE | 2018-05-14 13:42 | PN ---
Physical Exam: SUBJECTIVE: Patient seen and examined, c/o abdominal pain, no nausea, vomiting, fevers, chills or tremors currently. OBJECTIVE: Vital Signs Period Temp Pulse Resp BP Sys/Doll Pulse Ox Last 24 Hr 97.7 F-98.4 F 60-96 18-20 96-109/53-68 95-100 GENERAL: lying in bed in no acute distress Chest: CTAB, no rales or wheezing Abdomen soft, epigastric and RUQ tenderness along the liver margin, more in epigastric region,unable to elicit clear Landers's sign, minimal medial LUQ tenderness, no voluntary or involuntary guarding or rigidity, positive bowel sounds Extremities: no edema, neg tremors. Laboratory Results - last 24 hr 05/13/18 05/13/18 05/13/18 23:50 23:50 23:50 WBC 8.3 RBC 3.07 L Hgb 10.6 L Hct 31.2 L MCV 101.7 H MCH 34.6 H D MCHC 34.0 RDW 16.8 H Plt Count 156 MPV 8.4 D Absolute Neuts (auto) 4.3 Neutrophils % 51.6 Neutrophils % (Manual) No Result Required. Lymphocytes % 35.9 Monocytes % 9.9 Eosinophils % 1.1 Basophils % 1.5 Nucleated RBC % 0 PT with INR INR PTT (Actin FS) Sodium 143 Potassium 3.4 L Chloride 107 Carbon Dioxide 27 Anion Gap 9 BUN 4 L Creatinine 0.8 Creat Clearance w eGFR > 60 Random Glucose 90 Lactic Acid 3.1 H* Calcium 8.2 L Phosphorus Magnesium Transferrin Ferritin Total Bilirubin 1.5 H Direct Bilirubin AST 102 H ALT 31 Alkaline Phosphatase 684 H Total Protein 6.3 L Albumin 2.4 L Lipase 507 H Vitamin B12 Serum Folate Urine Color Urine Appearance Urine pH Ur Specific [place] Urine Protein Urine Glucose (UA) Urine Ketones Urine Blood Urine Nitrite Urine Bilirubin Urine Urobilinogen Ur Leukocyte Esterase Alcohol, Quantitative 05/14/18 05/14/18 05/14/18 00:05 02:40 05:00 WBC RBC Hgb Hct MCV MCH MCHC RDW Plt Count MPV Absolute Neuts (auto) Neutrophils % Neutrophils % (Manual) Lymphocytes % Monocytes % Eosinophils % Basophils % Nucleated RBC % PT with INR INR PTT (Actin FS) Sodium Potassium Chloride Carbon Dioxide Anion Gap BUN Creatinine Creat Clearance w eGFR Random Glucose Lactic Acid 2.7 H* Calcium Phosphorus Magnesium Transferrin Ferritin Total Bilirubin Direct Bilirubin AST ALT Alkaline Phosphatase Total Protein Albumin Lipase Vitamin B12 Serum Folate Urine Color Jy[place]i Urine Appearance Slcloudy Urine pH 5.0 Ur Specific [place] 1.019 Urine Protein Negative Urine Glucose (UA) Negative Urine Ketones Negative Urine Blood Negative Urine Nitrite Negative Urine Bilirubin Negative Urine Urobilinogen 2.0 H Ur Leukocyte Esterase Negative Alcohol, Quantitative < 5.0 05/14/18 05/14/18 05/14/18 05:30 05:30 05:30 WBC 5.7 RBC 2.83 L Hgb 9.9 L Hct 29.3 L MCV 103.8 H MCH 35.0 H MCHC 33.8 RDW 17.2 H Plt Count 115 L D MPV 9.1 Absolute Neuts (auto) Neutrophils % Neutrophils % (Manual) Lymphocytes % Monocytes % Eosinophils % Basophils % Nucleated RBC % PT with INR 14.40 H INR 1.27 H D PTT (Actin FS) 35.0 Sodium 143 Potassium 3.8 Chloride 110 H Carbon Dioxide 24 Anion Gap 9 BUN 3 L Creatinine 0.7 Creat Clearance w eGFR > 60 Random Glucose 72 L Lactic Acid Calcium 7.3 L Phosphorus 2.9 Magnesium 1.5 L Transferrin Ferritin 93.8 Total Bilirubin 1.5 H Direct Bilirubin 1.3 H AST 80 H ALT 24 Alkaline Phosphatase 606 H D Total Protein 5.4 L Albumin 2.1 L Lipase Vitamin B12 950 H Serum Folate > 100 H Urine Color Urine Appearance Urine pH Ur Specific [place] Urine Protein Urine Glucose (UA) Urine Ketones Urine Blood Urine Nitrite Urine Bilirubin Urine Urobilinogen Ur Leukocyte Esterase Alcohol, Quantitative 05/14/18 05/14/18 05/14/18 05:30 05:30 05:30 WBC RBC Hgb Hct MCV MCH MCHC RDW Plt Count MPV Absolute Neuts (auto) Neutrophils % Neutrophils % (Manual) Lymphocytes % Monocytes % Eosinophils % Basophils % Nucleated RBC % PT with INR INR PTT (Actin FS) Sodium Potassium Chloride Carbon Dioxide Anion Gap BUN Creatinine Creat Clearance w eGFR Random Glucose Lactic Acid Calcium Phosphorus Magnesium Transferrin Cancelled Ferritin Total Bilirubin Direct Bilirubin Cancelled AST ALT Alkaline Phosphatase Total Protein Albumin Lipase Vitamin B12 Cancelled Serum Folate Urine Color Urine Appearance Urine pH Ur Specific [place] Urine Protein Urine Glucose (UA) Urine Ketones Urine Blood Urine Nitrite Urine Bilirubin Urine Urobilinogen Ur Leukocyte Esterase Alcohol, Quantitative 05/14/18 05/14/18 05:30 10:00 WBC RBC Hgb Hct MCV MCH MCHC RDW Plt Count MPV Absolute Neuts (auto) Neutrophils % Neutrophils % (Manual) Lymphocytes % Monocytes % Eosinophils % Basophils % Nucleated RBC % PT with INR INR PTT (Actin FS) Sodium Potassium Chloride Carbon Dioxide Anion Gap BUN Creatinine Creat Clearance w eGFR Random Glucose Lactic Acid 1.2 Calcium Phosphorus Magnesium Transferrin Ferritin Cancelled Total Bilirubin Direct Bilirubin AST ALT Alkaline Phosphatase Total Protein Albumin Lipase Vitamin B12 Serum Folate Urine Color Urine Appearance Urine pH Ur Specific [place] Urine Protein Urine Glucose (UA) Urine Ketones Urine Blood Urine Nitrite Urine Bilirubin Urine Urobilinogen Ur Leukocyte Esterase Alcohol, Quantitative Active Medications Generic Name Dose Route Start Last Admin Trade Name Freq PRN Reason Stop Dose Admin Heparin Sodium (Porcine) 5,000 unit 05/14/18 06:00 05/14/18 05:59 Heparin - SQ 5,000 unit TID SYED Administration Lactated Ringer's 1,000 ml in 1,000 mls @ 200 mls/hr 05/14/18 03:43 05/14/18 03:59 Lactated Ringers Solution IV 200 mls/hr ASDIR SYED Administration Dextrose/Sodium Chloride 1,000 mls @ 125 mls/hr 05/14/18 09:45 05/14/18 10:38 D5-Ns - IV 125 mls/hr ASDIR SYED Administration CT A/P and Abdominal RICHARD results revivewed. ASSESSMENT/PLAN: 57 yof with PMHx of ETOH abuse, at [facility] (for ETOH/hydrocodone detox) admitted with abdominal pain. -Acute alcohol pancreatitis -Abnormal LFTs, suspect alcoholic hepatitis, given direct hyperbilirubinemia and CBD mild dilation,r/o obstructive process -ETOH abuse/dependence Plan: NPO, Aggressive IVF, pain control, taper morphine. MRCP. Trend LFTs, daily INR. Check hepatitis panel. Follow up GI input. Monitor for withdrawal symptoms, detox protocol accordingly. DVTPPx with heparin Add IV protonix. Dispo pending clinical improvement. Plan discussed with patient in detail, all questions answered. Visit type - Emergency Visit Emergency Visit: No - New Patient This patient is new to me today: Yes Date on this admission: 05/14/18 - Critical Care Critical Care patient: No - Discharge Referral [facility]erred to [facility] Med P.C.: No
--- NOTE | 2018-05-14 13:56 | PN ---
Progress Note (short form) - Note Progress Note: GI CONSULTATION FOR DR CARL: PLEASE SEE THE COMPLETE CONSULT DICTATION IN BRIEF: 57F WHO HAS NOT HAD NMEDICAL CARE INSOME TIME AND DENIES A PMHX ADMIT FOR EVAL. PRIOR TO GOING TO ETOH DETOX. NO GI C/O AT THIS TIME FOUND TO HAVE LIPASE 600 AP600 MINIMAL LFT ELEVATION CT SCAN C/W MMILD PANCREAITITS AND CANNOT R/O PANCREATIC HEAD LESION PT WITH 30 POUNDS WT LOSS AND POOR NUTRITIONAL STATUS---UNCLEAR IF DUE TO OCCULT MALIGNANCY VS CHRONIC ETOH USAGE AND POOR EATING RECC; ETOH DETOX/MVI/THIAMINE/FOLATE WATCH FOR ETOH W/D CONTINUE RX OF MILD PANCREATITIS: IVF NOW PAIN FREE--OK TO START CLEARS PO; ONCE TAKING POI CAN REDUCE IVF NEEDS TO HAVE LIVER AND PANCREAS EVAL. CHECK HEPATITIS SEROLOGIES CHECK AFP/CA-19/9 ONCE PANCREATITIS CLINICALLY RESOLVED, THEN WOULD CHECK AN MRI WITH THIN PANCREATIC WINDOWS TO ASSESS FOR PANCREATIC HEAD LESION CURRENTLY PT APPEARS COMFORATBALE AND NO EIVEDENC EOF END ORGAN DAMAGE THANKS, MD DR MESERET WHITTINGTON TEAM T/F
--- NOTE | 2018-05-14 15:48 | CONS ---
DATE OF CONSULTATION: 05/14/2018 I was asked by to evaluate the patient for alcohol abuse. The patient is a 57-year-old female, who is a very poor informant. She really cannot tell me much about her medical history, says she does not go to doctors. She says that for the past 5 years she has been drinking alcohol heavily. She drinks over a pint of vodka daily. She starts drinking early in the morning. When she starts getting the shakes, she drinks more vodka. She has no known history of any pancreatic or liver disease that she is aware of, and as I said, she has not seen a doctor in many years. She has never had baseline medical testing or colonoscopy in the past. The patient does not take any medications. She came to the hospital because, what happened was, she was going to go to, I think, [facility] Alcohol detox and they had her come to the emergency room prior to have some testing, and she was noted to have some abnormal labs, and therefore she was admitted to the hospital. But the patient tells me she was not having any pain, nausea, vomiting, fever, chills, sweats, or change in bowel. She denies significant rectal bleeding or tarry stools. Other than that, her last drink was yesterday. She has no known drug allergies. She is now unemployed, single. She tells me she does not smoke or use drugs but she does drink alcohol heavily. She used to be a social drinker, now she drinks excessively. She had tried to go to detox in the past but failed and apparently, according to the chart, it says she is a smoker, although she tells me that she is not a smoker. Other than that, she denies having any surgery or any other medical problems like hyperlipidemia, hypertension, or diabetes. Currently, in the hospital, the patient's medications include the following: She is getting heparin subcutaneous, IV fluid, and actually some lactated Ringer's and some morphine. She had been getting some Librium, which it looks like has been discontinued. On physical exam, she appears older than her stated age of 57. She is in absolutely no acute distress. She is conversant. She is alert and oriented. She is not tremulous. Her sclerae are anicteric. Her neck is supple. She is very thin. In fact, she tells me she has gone from 120 to 90 pounds. She has very poor dentition and her mouth is dry. Her abdomen is flat, symmetric. There is no tenderness except there is mild tenderness in the epigastric region on deep palpation. There is no rebound or guarding. Her vital signs reveal a temperature of 97, a blood pressure of 108/67, and a pulse of 82. Per her labs, her white count is 5.7 with a hemoglobin of 9.9 and hematocrit 29.3, and an MCV of 103.8, and the platelet count is 115,000, yesterday it was 156,000. In addition, the patient's coagulation studies reveal an INR of 1.27. Her chemistries reveal a sodium 143, potassium 3.8, chloride 110, bicarbonate of 24, BUN 3, creatinine 0.7, she has a glucose of 72 and magnesium of 1.5, she has a total bilirubin of 1.5, a direct of 1.3, and AST of 80, ALT of 24, alkaline phosphatase of 606, a total protein of 5.4, and albumin of 2.1. The patient has had no other blood work testing here and she tells me that she has not been here at [facility] in the past. Her alcohol level is negative. In addition, she has a CAT scan of the abdomen and pelvis that reveals haziness and stranding around the pancreatic head and uncinate process, suggestive of acute pancreatitis, and she has a common bile duct at 7 mm. She has a distended gallbladder without stones. There is some thickening of the urinary wall, non-visualization of the appendix. She appears to have a mild pancreatitis and an underlying pancreatic lesion could not be excluded at this time. It is my impression that the patient is a 57-year-old white female, who is unaware of any medical history except for significant alcohol abuse for the past few years. She comes in to go to detox and also she was noted to have a lipase of 600. She was found to have a mild elevation of lipase and CT scan changes consistent with a mild pancreatitis, and on exam, she is certainly tender in the epigastric region. So likely, it is unclear whether the lipase reflects simple chronic alcohol abuse, which patients who are chronic alcoholics can have baseline elevation of the lipase levels, or whether she has had a mild acute attack of pancreatitis. Regardless, based on her age and weight loss, I think she needs to undergo a full evaluation of this alkaline phosphatase to make sure there is not an underlying lesion in either the head of the pancreas or in the liver, and she is going to need further workup of that once her pancreatitis has resolved. I do agree with aggressive hydration with lactated Ringer's, and she is currently tolerating or would like liquids. I think we can start her on a clear liquid diet and see how she does. I would recommend also watching for withdrawal, giving her multivitamin, thiamine and folate, watching for onset of DTs. I think her electrolytes needs to be monitored, her magnesium needs to be replenished, her potassium should be checked on a daily basis as well. She should undergo hepatitis serologies and alpha-fetoprotein testing, and I suspect prior to discharge, she is going to need an MRI to better assess the pancreas to rule out an underlying lesion, and at this time a CA-19-9 with the essentially normal bilirubin would probably helpful to help exclude an early pancreatic lesion. Dr. Johnson and his team will continue to be available to aid in the management of this patient. Thank you kindly. CANDACE WHITTINGTON M.D. DOMINICK/[id number]
--- NOTE | 2018-05-14 18:30 | CONSULT ---
Consult Detox [facility] Reason for Current Admission/Consult: Pt was transferred here from [facility] ER for evaluation of abd pain. Pt had gone to [facility] for detox from alcohol - History History of Present Illness: pt has several decade h/o alcohol use. Says she uses about 1/2 pint of vodka a day. Last use was yesterday am. Pt now with abd pain throughout and with c/o diarrhea for the last 8 hours or so. Diarrhea is watery- no blood, no recent antibiotic use. No known medical problems and pt is not taking medications. - History Source History Provided By: Patient Limitations to Obtaining History: No Limitations - Alcohol/Substance Use Hx Alcohol Use: Yes (VODKA) Hx Substance Use: No Hx Substance Use Treatment: No - Current Drug/Alcohol Use Alcohol Route: Oral Frequency: Daily Amount used: 1/2 pint of vodka/day Date of Last Use: 05/13/18 - Past Medical History ...LMP: 12/07/13 ...: No Heme/Onc: Yes: Anemia Psych: Yes: Addictions - Past Surgical History Past Surgical History: Yes: None - Significant Medical Findings: PE Vital Signs - 24 hr 05/13/18 05/14/18 05/14/18 22:41 02:01 02:42 Temperature 98.4 F Pulse Rate 96 H Pulse Rate [ 60 80 Left Radial] Respiratory 20 18 18 Rate Blood Pressure 109/68 Blood Pressure 96/53 107/68 [Left Arm] O2 Sat by Pulse 100 97 Oximetry (%) 05/14/18 05/14/18 05/14/18 05:48 07:44 14:20 Temperature 97.7 F 97.6 F Pulse Rate 82 64 Pulse Rate [ Left Radial] Respiratory 20 Rate Blood Pressure 108/67 123/65 Blood Pressure [Left Arm] O2 Sat by Pulse 95 97 Oximetry (%) LAbs increased lipase and increase liver enzymes and Hct ~30. nl B12 and folate PE: lungs clear heart RRR abd- soft, tender throughout the abdomen, pos bowel sounds CIWA Score - CIWA Score Nausea/Vomitin-Mild Nausea/No Vomiting Muscle Tremors: 2 Anxiety: 1-Mildly Anxious Agitation: 0-Normal Activity Paroxysmal Sweats: 1-Minimal Palms Moist Orientation: 0-Oriented Tacttile Disturbances: 0-None Auditory Disturbances: 0-None Visual Disturbances: 0-None Headache: 0-None Present CIWA-Ar Total Score: 5 Assessment Plan - Diagnosis (1) Pancreatitis Status: Acute Qualifiers: Chronicity: acute Pancreatitis type: unspecified pancreatitis type Acute pancreatitis complication: unspecified Qualified Code(s): K85.90 - Acute pancreatitis without necrosis or infection, unspecified (2) Alcohol dependence with uncomplicated withdrawal Status: Acute - Medication Detox Regimen/Protocol: Valium (pt with some tremors- will order detox protocol to hold for sedation)
[2018-05-14] MEDS ORDERED: diazePAM 5 MG TABLET PO PRN (18:38)
[2018-05-14] MEDS ORDERED: diazePAM 5 MG TABLET PO ONE (18:45)
[2018-05-14] MEDS: diazePAM 5 MG TABLET PO SCH (21:44)
[2018-05-15] MEDS: DEXTROSE 5%-NORMAL SALINE 1,000 ML IV SCH (01:00)
[2018-05-15] MEDS: LACTATED RINGERS SOLUTION 1,000 ML/1,000 ML INFUS.BAG IV SCH (03:30)
[2018-05-15] MEDS: diazePAM 5 MG TABLET PO SCH (06:03)
[2018-05-15] MEDS: HEPARIN NA (PORCINE) 5,000 UNITS/ML 1ML VIAL SQ SCH (06:04)
[2018-05-15 06:06] LABS: SERUM IRON SATURATION 36 % (15-55); TOTAL IRON BINDING CAPACITY 174 ug/dL (250-450); UIBC 112 ug/dL (131-425)
[2018-05-15 08:26] LABS: INR 1.29 (0.82-1.09); PROTHROMBIN TIME (PATIENT) 14.6 SEC (9.7-13.0)
[2018-05-15 08:30] LABS: BASO % 0.7 % (0-2.0); EOS % 1.9 % (0-4.5); HEMATOCRIT 27.8 % (32.4-45.2); HEMOGLOBIN 9.4 GM/dL (10.7-15.3); LYMPH % 43.2 % (8-40); MCH 34.8 pg (25.7-33.7); MCHC 33.7 g/dl (32.0-36.0); MEAN CELL VOLUME 103.1 fl (80-96); MEAN PLT VOLUME 8.5 fl (7.5-11.1); MONO % 9.8 % (3.8-10.2); NEUT % 44.4 % (42.8-82.8); PLATELET COUNT 103 K/MM3 (134-434); RBC 2.69 M/mm3 (3.60-5.2); WHITE BLOOD COUNT 4.3 K/mm3 (4.0-10.0)
[2018-05-15 08:36] LABS: ANION GAP 8 (8-16); BILIRUBIN,DIRECT 1.3 mg/dL (0.0-0.2); BILIRUBIN,TOTAL 1.4 mg/dL (0.2-1.0); CALCIUM 7.6 mg/dL (8.5-10.1); CHLORIDE 109 mmol/L (98-107); CO2 27 mmol/L (21-32); CREATININE 0.6 mg/dL (0.55-1.02); GLUCOSE,RANDOM 110 mg/dL (74-106); MAGNESIUM 1.8 mg/dL (1.8-2.4); PHOSPHOROUS 3.1 mg/dL (2.5-4.9); SGOT/AST 66 U/L (15-37); SGPT/ALT 23 U/L (12-78); SODIUM 144 mmol/L (136-145); TOT PROT 5.3 g/dl (6.4-8.2)
[2018-05-15 08:37] LABS: ALK PHOS 541 U/L (45-117)
[2018-05-15 09:35] LABS: BLOOD UREA NITROGEN 1 mg/dL (7-18)
[2018-05-15] MEDS ORDERED: PANTOPRAZOLE 40 MG TABLET (FP) PO SCH (10:45)
[2018-05-15] MEDS ORDERED: POTASSIUM CHLORIDE ORAL LIQUID 20 MEQ/15 ML PO ONE (11:00)
[2018-05-15 12:50] VITALS: BP 117/74; PULSE 74; TEMP 98
--- NOTE | 2018-05-15 17:58 | PN ---
Teaching Attending Note Name of Resident: Mary Alice Armstrong ATTENDING PHYSICIAN STATEMENT I saw and evaluated the patient. I reviewed the resident's note and discussed the case with the resident. I agree with the resident's findings and plan as documented with exceptions below. SUBJECTIVE: Patient seen and examined, Still with abdominal pain, asking to eat. no tremors , anxiety or concerns. OBJECTIVE: Vital Signs Period Temp Pulse Resp BP Sys/Doll Pulse Ox Last 24 Hr 97.8 F-98.2 F 67-74 20-20 117-121/72-80 97 Intake & Output 05/12/18 05/13/18 05/14/18 05/15/18 23:59 23:59 23:59 23:59 Intake Total 1625 1740 Balance 1625 1740 Weight 95 lb 105 lb General: lying in bed in no acute distress Chest: CTAB, no rales or wheezing Abdomen: soft, tenderness in epigastrium, RUQ and medial LUQ, mild voluntary guarding, no rigidity, positive bowel sounds Neuro: AAOx3 , no tremors, power 5/5, sensation intact to light touch, facial symmetry, cranial nerves II-XII intact Home Medications Medication Instructions Recorded Pregabalin [Lyrica] 150 mg PO HS 04/23/14 Hydrocodone/Acetaminophen [Lortab 1 each PO BID 11/23/14 10-325 mg Tablet] Laboratory Results - last 24 hr 05/14/18 05/15/18 05/15/18 05:30 07:15 07:15 WBC 4.3 RBC 2.69 L Hgb 9.4 L Hct 27.8 L MCV 103.1 H MCH 34.8 H MCHC 33.7 RDW 17.0 H Plt Count 103 L MPV 8.5 Absolute Neuts (auto) 1.9 Neutrophils % 44.4 Lymphocytes % 43.2 H D Monocytes % 9.8 Eosinophils % 1.9 Basophils % 0.7 Nucleated RBC % 0 PT with INR 14.60 H INR 1.29 H Sodium Potassium Chloride Carbon Dioxide Anion Gap BUN Creatinine Creat Clearance w eGFR Random Glucose Calcium Phosphorus Magnesium Iron 62 TIBC 174 L Iron Saturation 36 Total Bilirubin Direct Bilirubin AST ALT Alkaline Phosphatase Total Protein Albumin 05/15/18 07:15 WBC RBC Hgb Hct MCV MCH MCHC RDW Plt Count MPV Absolute Neuts (auto) Neutrophils % Lymphocytes % Monocytes % Eosinophils % Basophils % Nucleated RBC % PT with INR INR Sodium 144 Potassium 3.0 L Chloride 109 H Carbon Dioxide 27 Anion Gap 8 BUN 1 L* Creatinine 0.6 Creat Clearance w eGFR > 60 Random Glucose 110 H Calcium 7.6 L Phosphorus 3.1 Magnesium 1.8 Iron TIBC Iron Saturation Total Bilirubin 1.4 H Direct Bilirubin 1.3 H AST 66 H ALT 23 Alkaline Phosphatase 541 H D Total Protein 5.3 L Albumin 2.0 L ASSESSMENT AND PLAN: 57 yof with PMHx of ETOH abuse, at [facility] (for ETOH/hydrocodone detox) admitted with abdominal pain. -Acute alcohol pancreatitis -Abnormal LFTs, suspect alcoholic hepatitis, given direct hyperbilirubinemia and CBD mild dilation,r/o obstructive process -ETOH abuse/dependence -Hypokalemia Plan: acid tender, continue clears as tolerated with serial abdominal exams, IVF, pain control. 'MRCP Follow up with GI. Trend LFTs. Replete K. patient wanting to leave the hospital Explained in detail the findings of pancreatic inflammation, liver abnormalities , need for inhouse monitoring and additional w/u and possible detox after medically improved if she is interested. Explained risks of leaving including liver failure, worsening pancreatic inflammation with sepsis, withdrawal seziures, and . Patient is AAOX3 , and able to relay full understanding of the risks and relay them back to me. Patient's intent discussed with nursing.
--- NOTE | 2018-05-15 19:18 | DS ---
Physical Exam: SUBJECTIVE: Patient seen and examined this morning at bedside. Patient continues to feel abdominal pain. Denies any tremors, photophobia, nausea, vomiting, fevers, chills, chest pain, SOB, diarrhea, constipation. OBJECTIVE: Vital Signs Period Temp Pulse Resp BP Sys/Doll Pulse Ox Last 24 Hr 97.8 F-98.2 F 67-74 20-20 117-121/72-80 97 PHYSICAL EXAM GENERAL: The patient is awake, alert, and fully oriented, in no acute distress. LUNGS: Breath sounds equal, clear to auscultation bilaterally, no wheezes, no crackles, no accessory muscle use. HEART: Regular rate and rhythm, S1, S2 without murmur, rub or gallop. ABDOMEN: Tender to palpation in the RUQ, epigastrum and LUQ. Normoactive bowel sounds NEUROLOGICAL: Normal speech, No tremors, facial symmetry intact LABS Laboratory Results - last 24 hr 05/14/18 05/15/18 05/15/18 05:30 07:15 07:15 WBC 4.3 RBC 2.69 L Hgb 9.4 L Hct 27.8 L MCV 103.1 H MCH 34.8 H MCHC 33.7 RDW 17.0 H Plt Count 103 L MPV 8.5 Absolute Neuts (auto) 1.9 Neutrophils % 44.4 Lymphocytes % 43.2 H D Monocytes % 9.8 Eosinophils % 1.9 Basophils % 0.7 Nucleated RBC % 0 PT with INR 14.60 H INR 1.29 H Sodium Potassium Chloride Carbon Dioxide Anion Gap BUN Creatinine Creat Clearance w eGFR Random Glucose Calcium Phosphorus Magnesium Iron 62 TIBC 174 L Iron Saturation 36 Total Bilirubin Direct Bilirubin AST ALT Alkaline Phosphatase Total Protein Albumin 05/15/18 07:15 WBC RBC Hgb Hct MCV MCH MCHC RDW Plt Count MPV Absolute Neuts (auto) Neutrophils % Lymphocytes % Monocytes % Eosinophils % Basophils % Nucleated RBC % PT with INR INR Sodium 144 Potassium 3.0 L Chloride 109 H Carbon Dioxide 27 Anion Gap 8 BUN 1 L* Creatinine 0.6 Creat Clearance w eGFR > 60 Random Glucose 110 H Calcium 7.6 L Phosphorus 3.1 Magnesium 1.8 Iron TIBC Iron Saturation Total Bilirubin 1.4 H Direct Bilirubin 1.3 H AST 66 H ALT 23 Alkaline Phosphatase 541 H D Total Protein 5.3 L Albumin 2.0 L Microbiology 05/14/18 21:00 Stool Gram Stain - Final 05/14/18 21:00 Stool Clostridium difficile Antigen (ELIE) - Final 05/14/18 21:00 Stool Clostridium difficile Toxin Assay - Final 05/14/18 00:05 Urine - Urine Clean Catch Urine Culture - Final Contaminated: Please Repeat Ambulatory Orders Pregabalin [Lyrica] 150 mg PO HS 04/23/14 Hydrocodone/Acetaminophen [Lortab 10-325 mg Tablet] 1 each PO BID 11/23/14 IMAGING: CT Abdomen and Pelvis: Stranding/haziness surrounding the pancreatic head and uncinate process suggestive of acute pancreatitis. Dilation with pancreatic enzymes is needed. Correlation with contrast-enhanced MRI of the pancreas is also recommended to rule out any underlying lesion. Partially distended gallbladder without gross intraluminal stones. There is mild dilatation of the common bile duct measuring 7 mm in diameter. Thickening of the third portion of the duodenum and proximal jejunal loop. Although this may be due to adjacent surrounding peripancreatic inflammation, enteritis cannot be excluded. Mild thickening of the urinary bladder wall likely due to inadequate distention. Nonvisualization of the appendix. Minimal anterolisthesis of L3 over L4, likely degenerative. Chest Xray: Since 02/08/2017 there is a more apical lordotic projection with slight rotation to the right, prominent mediastinum and some new atelectatic change at the right base. Follow-up recommended. Right upper abdomen ultrasound: Borderline size to slightly prominent pancreatic head measuring 3.1 cm in AP dimension. Hepatomegaly with a slightly dense and coarse echotexture suggestive of mild fatty infiltration versus hepatocellular disease. Please correlate with liver enzymes. Borderline thickening of the gallbladder wall with likely a 5 mm polyp and possible nonmobile tiny stones. No pericholecystic free fluid is present. Mild dilatation of the common bile duct measuring 7 mm. Note is made of a questionable trace of free fluid around the dome of the liver HOSPITAL COURSE: Date of Admission:05/14/18 Date of Discharge: 05/15/18 Prehospital course as per Dr. Ryley Drake 57 yo F h/o alcohol dependence presented to the ED with abd pain for months. Patient states that she had previously underwent alcohol detox in order to raise her children. But she started drinking 1 pint of vodka again a few months ago. Her last drink was this morning 2am. She was at [facility] wanting detox but got sent to [facility] ED for abd pain. The pain is diffuse, 7/10, intermittent , pressure and stabbing like, non-radiating, a/w bloating, better with drinking , no aggravating factor. Denies n/v, fever, chills, sob, chest pain, urinary or bowel sx. Hospital course Patient was admitted for Abdominal pain likely due to Alcoholic pancreatitis. A CT scan of the abdomen was suggestive of acute pancreatitis. Patient was made NPO and given aggresive IVF Resuscitation. Pain was controlled with morphine. Patient was advanced to PO clears once she was pain free. GI was consulted and recommended an MRI once the pancreatitis has resolved to assess for a pancreatic head lesion. Her liver enzymes continued to trend down and her lactic acidosis resolved. As per Dr. Soria's recommendations, Valium was used for the Detox regimen. Treatment was progressing when I was notified this afternoon that the patient eloped. Before the patient left, I did not have an opportunity to discuss in detail the risks of leaving against medical advice. Minutes to complete discharge: 42 Discharge Summary Reason For Visit: ABDOMINAL PAIN Current Active Problems Alcohol dependence with uncomplicated withdrawal (Acute) History of anemia (Acute) Pancreatitis (Acute) Condition: Guarded - Instructions Disposition: AGAINST MEDICAL ADVICE - Home Medications Comprehensive Discharge Medication List: Ambulatory Orders Pregabalin [Lyrica] 150 mg PO HS 04/23/14 Hydrocodone/Acetaminophen [Lortab 10-325 mg Tablet] 1 each PO BID 11/23/14 This patient is new to me today: Yes Date on this admission: 05/15/18 Emergency Visit: Yes ED Registration Date: 05/14/18 Care time: The patient presented to the Emergency Department on the above date and was hospitalized for further evaluation of their emergent condition. Critical Care patient: No - Discharge Referral Referred to [facility] Med P.C.: No
[2018-05-16 06:10] LABS: TRANSFERRIN 134 mg/dL (200-370)
[2018-05-16 06:10] LABS: HEP.C VIRUS AB 0.2 s/co ratio (0.0-0.9)
[2018-05-16] MEDS ORDERED: diazePAM 5 MG TABLET PO SCH (10:00)
[2018-05-18] MEDS ORDERED: diazePAM 5 MG TABLET PO SCH (10:00)
== END 2018-05-15 13:29 | disposition left against medical advice (07) | DRG 439 ==
LOC: JER 22:26 → JERBED 05-14 04:10 → J6S 05-14 07:27
PROVIDERS: ADMIT Internal Medicine; ATTEND Hospitalist
DX: K85.20 Alcohol induced acute pancreatitis without necrosis or infection (principal); R64 Cachexia; Z68.1 Body mass index [BMI] 19.9 or less, adult; F17.210 Nicotine dependence, cigarettes, uncomplicated; D64.9 Anemia, unspecified; F32.9 Major depressive disorder, single episode, unspecified; M54.9 Dorsalgia, unspecified; E88.09 Other disorders of plasma-protein metabolism, not elsewhere classified; F10.20 Alcohol dependence, uncomplicated; R74.0 Nonspecific elevation of levels of transaminase and lactic acid dehydrogenase [LDH]
CPT/HCPCS: 36415; 71045-TC-FY; 74177-TC; 76705-TC; 80048; 80053; 80074; 80076; 80307; 81003; 82248; 82607; 82728; 82746; 83540; 83550; 83605; 83690; 83735; 84100; 84466; 85025; 85027; 85610; 85730; 87086; 87205; 87324; 87449; 93005; 93010; 99284-25; J0131; J1644; J7030

== ENCOUNTER 2018-06-03 19:22 | Emergency (ER) | payer OTHER ==
[2018-06-03 19:28] VITALS: BP 115/76; PULSE 90; TEMP 98.3; BMI 18.1
--- NOTE | 2018-06-03 19:48 | PDOC ---
History of Present Illness - General History Source: Patient Exam Limitations: No Limitations - History of Present Illness Initial Comments: 06/03/18 21:53 The patient is a 57 year old female with a past medical history of EtOH abuse ( 30 years) who presents to the emergency department with the intent to quit drinking. The patient reports the desire to stop drinking today. She states she has tried to quit drinking years ago, but resumed drinking after her parents and losing her house. Pt states she feels depressed. She admits her last drinking was vodka with orange juice this morning. She has not other complaints today. The patient denies chest pain, shortness of breath, headache, and dizziness. Denies fever, chills, nausea, vomiting, any bowel/urinary symptoms. allergies: nkda. social history: EtOH abuse. Current everyday smoker. No reported drug use. <Suzy Rodriguez - Last Filed: 06/03/18 21:53> <Yisel Pitt - Last Filed: 06/04/18 19:31> - General Chief Complaint: Alcohol intoxication Stated Complaint: INTOX Time Seen by Provider: 06/03/18 19:47 Past History <Suzy Rodriguez - Last Filed: 06/03/18 21:53> - Past Medical History Anemia: Yes Asthma: No Cancer: No Cardiac Disorders: No CVA: No COPD: No CHF: No Dementia: No Diabetes: No GI Disorders: No Disorders: No HTN: No Hypercholesterolemia: No Kidney Stones: No Liver Disease: No Seizures: No Thyroid Disease: No - Surgical History Abdominal Surgery: No Appendectomy: No Cardiac Surgery: No Cholecystectomy: No Lung Surgery: No Neurologic Surgery: No Orthopedic Surgery: No - Reproductive History PID: No - Immunization History Td Vaccination: No - Suicide/Smoking/Psychosocial Hx Smoking Status: Yes Smoking History: Current every day smoker Have you smoked in the past 12 months: Yes Number of Cigarettes Smoked Daily: 10 Cigars Per Day: 0 Information on smoking cessation initiated: No 'Breaking Loose' booklet given: 02/07/17 Hx Alcohol Use: Yes (VODKA) Drug/Substance Use Hx: No Substance Use Type: Alcohol Hx Substance Use Treatment: No <Yisel Pitt - Last Filed: 06/04/18 19:31> - Past Medical History Allergies/Adverse Reactions: Allergies Allergy/AdvReac Type Severity Reaction Status Date / Time No Known Allergies Allergy Verified 06/03/18 20:27 Review of Systems - Review of Systems Able to Perform ROS?: Yes Comments:: GENERAL/CONSTITUTIONAL: No fever or chills. No weakness. HEAD, EYES, EARS, NOSE AND THROAT: No change in vision. No ear pain or discharge. No sore throat. CARDIOVASCULAR: No chest pain or shortness of breath. RESPIRATORY: No cough, wheezing, or hemoptysis. GASTROINTESTINAL: No nausea, vomiting, diarrhea or constipation. GENITOURINARY: No dysuria, frequency, or change in urination. MUSCULOSKELETAL: No joint or muscle swelling or pain. No neck or back pain. SKIN: No rash NEUROLOGIC: No headache, vertigo, loss of consciousness, or change in strength/ sensation. ENDOCRINE: No increased thirst. No abnormal weight change. HEMATOLOGIC/LYMPHATIC: No anemia, easy bleeding, or history of blood clots. ALLERGIC/IMMUNOLOGIC: No hives or skin allergy. <Suzy Rodriguez - Last Filed: 06/03/18 21:53> *Physical Exam - Vital Signs Last Vital Signs Temp Pulse Resp BP Pulse Ox 98.3 F 90 18 115/76 99 06/03/18 19:24 06/03/18 19:24 06/03/18 19:24 06/03/18 19:24 06/03/18 19:24 <Suzy Rodriguez - Last Filed: 06/03/18 21:53> - Vital Signs Last Vital Signs Temp Pulse Resp BP Pulse Ox 98.3 F 90 18 115/76 99 06/03/18 19:24 06/03/18 19:24 06/03/18 19:24 06/03/18 19:24 06/03/18 19:24 <Yisel Pitt - Last Filed: 06/04/18 19:31> Medical Decision Making - Medical Decision Making 06/04/18 19:30 Pt is an alcoholic, who came to the ER to eat dinner. After clearing her tray, and speaking to the medical student, pt eloped before I got to see her. <Yisel Pitt - Last Filed: 06/04/18 19:31> *DC/Admit/Observation/Transfer <Suzy Rodriguez - Last Filed: 06/03/18 21:53> <Yisel Pitt - Last Filed: 06/04/18 19:31> Diagnosis at time of Disposition: Alcohol abuse - Discharge Dispostion Disposition: ELOPED Attestations - Attestations Documentation prepared by Suzy Rodriguez, acting as medical pathology teacher for Yisel Pitt MD. <Suzy Rodriguez - Last Filed: 06/03/18 21:53>
== END 2018-06-03 20:43 | disposition left against medical advice (07) ==
LOC: JER 19:22
DX: F10.10 Alcohol abuse, uncomplicated (principal); F17.210 Nicotine dependence, cigarettes, uncomplicated
CPT/HCPCS: 99281-25